=== PATIENT | female | born 2000 | race Caucasian/White ===

== ENCOUNTER 2020-07-23 08:25 | Inpatient (IN) | payer OTHER ==
[2020-07-23] VITALS (18 sets, daily range): BP systolic 94–132; BP diastolic 55–84; PULSE 18–106; TEMP 97.1–98.8
[~2020-07-23] VITALS: Ht 170.2 cm; Wt 83.6 kg
--- NOTE | 2020-07-23 08:30 | NUR ---
0830- Pt arrives on unit ambulatory with complaints of contractions every 5mins apart. Pt and spouse orineted to room. Pt into bathroom to change into gown. 0840- Pt into bed, EFM and TOCO on and tracing. SVE /-2, intact. VSS. Assessment completed. Pt denies LOF. States she has had bloody show. +FM per Pt. 0855- Dr Roles at nurses station, informed of Pt status. Admission orders placed by . Report given to Birdie Mott RN, she assumes care.
--- NOTE | 2020-07-23 09:15 | NUR ---
This RN assumes care of patient. Plan of care discussed. 0935: IV started in right hand, unable to obtain labs, lab notified. 1040: Patiet off monitors to move freely and ambulate. 1048: Roles at bedside and SVE-. Plan of care discussed and no new orders at this time. 1132: Patient back on monitors. 1150: Patient off monitors to ambulate. 1240: Patient back on monitors and Roles at bedside assessing patient and FHR. SVE per physician . No new orders. 1300: Patient off monitors to ambulate. 1345: SVE-//0 and patient back on monitors. 1400: Patient feeling pressure. SVE-8/100/0. 1408: Patient off monitors to move freely. 1520: Patient back on monitors and patient standing at bedside. This RN at bedside and holding the monitor. Patient dislikes monitors due to increased pressure with contractions. Patient informed that FHR strip is protocol and patient verbalizes understanding. 1552: Patient off monitors and ambulating room. No needs at this time. 1610: SVE-/100/0
[2020-07-23 10:21] LABS: BASO % 0.2 % (0.0-2.0); GRAN # 13.2 (1.4-6.5); GRAN % 88.6 % (42.2-75.2); LYMPH # 1.1 (1.2-3.4); LYMPH % 7.1 % (20.0-51.0); MEAN CELL VOLUME 86 fl (80.0-100.0); MEAN CORPUSCULAR HEMOGLOBIN 28 pg (27.0-31.0); MEAN CORPUSCULAR HGB CONC 32 g/dl (33.0-37.0); MONO # 0.5 (0.1-0.6); MONO % 3.2 % (1.7-9.3); PLATELET COUNT 233 K/mm3 (130-400); RED BLOOD COUNT 3.98 M/mm3 (4.10-5.30)
[2020-07-23 10:23] LABS: HEMATOCRIT 34.3 % (37.0-47.0)
--- NOTE | 2020-07-23 16:50 | NUR ---
Dr. Hernandez at bedside assessing patient. SVE per physician-10 and AROM at this time with light meconium fluid noted. Patient updated. 1655: Pushing instruction discussed with patient and patient pushes with contractions. Dr. Hernandez at bedside. Patient refuses contractions monitors and requestes limited blood pressure checks. 1710: This RN at bedside and patient pushing with each contraction. Patient pushes on left side. Dr. Hernandez at nurses station. 1725: Patient continues to push on right side. Dr. Hernandez at bedside. FHR monitor intermittently tracing maternal heart rate and monitor adjusted. 1735: Patient off monitor to void. 1740: Patient pushing in knees/chest position. 1755: Dr. Hernandez at bedside and patient pushing with squat bar. 1815: Patient continues to push with each contraction. Dr. Hernandez at bedside. 1830: Patient continues to push and progress noted. Bedside report given to Lázaro RAIN.
--- NOTE | 2020-07-23 18:30 | NUR ---
1830 - THIS RN TO BEDSIDE FOR REPORT AND TO TAKE OVER PUSHING WITH PATIENT. THIS RN REMAINS AT BEDSIDE AND HELPS MANAGER FOOD BEVERAGE PATIENT THROUGH PUSHING WITHOUT AN EPIDURAL. 1840- DR. CISSE TO BEDSIDE FOR EVALUATION. PATIENT MAKING PROGRESS. DR. CISSE GIVES VERBAL ORDERS TO GET LIDOCAINE AND THINGS FOR DELIVERY. THIS RN GETS THINGS FOR DELIVERY AND LETS NURSERY NURSE KNOW WE ARE GETTING GLOSE. 1850- BREAKING DOWN BED FOR DELIVERY. THIS RN CALLS NURSERY IN FOR DELIVERY. 190- OF VIABLE MALE INFANT. PLACED TO MOTHER ABDOMEN WHERE NURSERY NURSE ASSUMES CARE AT THIS TIME. IV FLUIDS HOOKED BACK UP AND PITOCIN HOOKED UP BUT NOT RUNNING YET. 1910- OF PLACENTA. PITOCIN STARTED PER PROTOCOL AT 333ML/HR. 2ND DEGREE TEAR NOTED BY PROVIDER. LIDOCAINE GIVEN TO HELP WITH REPAIRS. FUNDUS MASSAGED TO FIRM BY PROVIDER. REPAIRS DONE. EBL NOTED TO BE 200 BY PROVIDER. 1920- VITALS STABLE, FUNDUS FIRM AND D2 WITH SMALL AMOUNT OF LOCHIA NOTED. BED AND PATIENT CLEANED UP AND PUT BACK TOGETHER. NEW CHUX PAD, PERIPAD AND ICEPACK TO PERINEUM. RECOVERY STARTED.
[2020-07-24 04:00] VITALS: BP 1114/62; PULSE 80; TEMP 98.1
[2020-07-24 06:58] VITALS: BP 106/57; PULSE 82; TEMP 98.3
--- NOTE | 2020-07-24 07:03 | NUR ---
Patient would like Motrin for some sorenes in her abd and she would like to take something before it gets worse. Motrin administered as prescribed. Denies additional needs.
[2020-07-24 11:13] VITALS: BP 110/59; PULSE 71; TEMP 98.4
[2020-07-24 15:30] VITALS: BP 111/61; PULSE 79; TEMP 98
[2020-07-24 19:00] VITALS: BP 119/69; PULSE 81; TEMP 98
[2020-07-25 07:30] VITALS: BP 116/77; PULSE 74; TEMP 98.1
[2020-07-25] MEDS ORDERED: IBU600 MG PO (09:02)
== END 2020-07-25 12:35 | disposition home or self-care (01) | DRG 807 ==
LOC: LDRO 08:25 → LDR 09:05 → OB 21:45
PROVIDERS: ADMIT Obstetrics & Gynecology
PROC: 10E0XZZ Delivery of Products of Conception, External Approach (ICD-10-PCS; principal; 2020-07-23)
PROC: 0KQM0ZZ Repair Perineum Muscle, Open Approach (ICD-10-PCS; 2020-07-23)
DX: O99.824 Streptococcus B carrier state complicating childbirth (principal); Z37.0 Single live birth; Z3A.40 40 weeks gestation of pregnancy; O70.1 Second degree perineal laceration during delivery; O77.0 Labor and delivery complicated by meconium in amniotic fluid; Z86.16 Personal history of COVID-19
CPT/HCPCS: J2540; J2590; J7120

== ENCOUNTER → 2020-10-05 | Outpatient (CLI) | payer OTHER ==
[~2020-10-05] MED LIST: IBU600 MG PO
--- NOTE | 2020-10-05 15:41 | NUR ---
Pt, Queta Miller" Rosina, presents for outpatient consult with 12 week old baby boy, Ashu Almaguer. She desires assistance to wean Munir from the nipple shield. Munir was born on [birth year] and weighed 7#8.6oz (3420 gms). Pt reports Munir needed to use the nipple shield initially because of difficult latch and short nipples. At approximately 8-9 weeks of age she was able to start nursing Munir without the shield at part of his feedings. She states recently that Munir is fussy at the breast with and without the nipple shield, that he is on and off for about 30 minutes and then will be content to nurse at the breast calmly for another 30 minutes. [address] pt [address] Munir to the breast, she is advised to compress the areola to get his mouth full of breast. He initially latches well and appears to swallow but after only a couple minutes he gets fussy, begins to demonstrate the fussy behavior she sees at home. He is weighed and has a gain of 6gms. He is placed back to the same breast with the nipple shield. He does have the on/off/fussy behavior and after about 20 minutes is re-weighed and demonstrates an additional 10gm gain. He is place to the left breast, which pt states is the "better" side. He nurses with frequent swallows again but only for a handful of minutes. Weight gain is 1.3oz (38gms). He is placed back to the left breast with the shield, and he settles in and nurses for about 20 minutes. Total weight gain is 3.1oz (86 gms). He is still fussy and pt lets him nurse longer with the nipple shield while POC reviewed. Weights reported from [facility] are as follows: 4 days of age: 7#3.2oz (37%) 14 days of age: 8#2.8oz (47%) 5 weeks of age: 9#9oz (29%) Today Munir weighs 10#12.2oz (6%), for an average of gain of 0.39oz per day over the last 7 weeks. Pt states she finished school, graduated and then traveled for a couple weeks during this time period. That Munir sleeps 7 hours per noc consistently. She has never used a breastpump, but in the early weeks she could use the Haaka and colled 2-3oz, so has a h/o high milk volume. Munir is currently nursing 6-7 times per 24 hours. Pt asks about using Haaka again, but this LC concerned at his age, he may reject the milk by bottle as he has never bottle fed. Pt would like to try holding off formula for now, and work on improving milk supply. Pt will focus on bringing the milk up with Munir at the breast throughout the daytime, avoiding the pacifier unless she is not available or he is in the car seat. Also, pt states she generally has two big meals per day, advised on increasing snacks to 4x per day to ensure her nutrional levels are adequate. POC: Keep Munir at the breast as much as possible, aiming for q 2 hours in the daytime. Allow him to sleep at noc as usual. F/U: 3 days with this LC, SundayOctober 08 at 1300. Questions invited and answered.
== END ==
LOC: LAC 14:57
DX: Z39.1 Encounter for care and examination of lactating mother (principal); Z71.89 Other specified counseling

== ENCOUNTER → 2020-10-08 | Outpatient (CLI) | payer OTHER ==
--- NOTE | 2020-10-08 13:33 | NUR ---
Pt, Queta Rojas, presents for follow up consult with 12 week old baby boy, Seth Rojas. They are being followed for weight gain and low milk supply. Seth was born on [birth year] and weighed 7#8.6 (3419 gms). They were seen on 10/05/20 by this LC because pt was trying to wean from use of the nipple shield. His weight was 10#12.2oz. It was discovered at that time that Seth had dropped to the 6th Percentile for growth. POC included frequent (q 2h hours). He was seen at [facility] on 10/07/20; pt state he had gained 2oz. He was also started on a reflux medication. Today Seth weighs 10#14.9oz (4960 gms). He ate about one hour ago but is willing to nurse now so feeds with the nipple shield. After Seth has a weight gain of 2.2oz (62 gms). POC: Continue as frequent as possible. F/U: With Dr. Hester as scheduled on 10/14/20. Questions invited and answered.
== END ==
LOC: LAC 13:09
DX: Z39.1 Encounter for care and examination of lactating mother (principal); Z71.89 Other specified counseling